=== PATIENT | male | born 1995 | race African-American/Black ===

== ENCOUNTER 2017-05-16 11:17 | Emergency (ER) | payer SELFPAY ==
[~2017-05-16] VITALS: Ht 172.7 cm; Wt 90.0 kg
[~2017-05-16 11:17] MED LIST: ALBU.5I NEB
[2017-05-16 11:19] VITALS: BP 139/79; PULSE 68; RESP 20; TEMP 98.2; O2SAT 99
--- NOTE | 2017-05-16 11:31 | PD ---
Physical Exam Date Seen by Provider: May 16, 2017 Time Seen by Provider: 11:30 Narrative 21-year-old male presents to emergency department with 2 episodes of painless hematuria since yesterday. Patient denies fever, chills, dull pain, flank pain, or penile discharge. Urinalysis is ordered. Vital signs stable. Patient awaiting bed placement. Data Data Last Documented VS Vital Signs Date Time Temp Pulse Resp B/P (MAP) Pulse Ox O2 Delivery O2 Flow Rate FiO2 05/16/17 11:19 98.2 68 20 139/79 (99) 99 Room Air [facility] Medical Record Reviewed: Yes Supervised Visit with COLLETTE: Yes Condition: Stable Mendez Negron May 16, 2017 11:31
[2017-05-16 12:40] LABS: BACTERIA, URINE OCC /hpf; BLOOD, URINE LARGE (NEG); COMMENT (UR) CULTURE INDICATED; CULTURE IF INDICATED CULTURE INDICATED; GLUCOSE,URINE NEG (NEG); KETONE, URINE NEG (NEG); NITRITE,URINE NEG (NEG); PH, URINE 8.5 (5.0-8.5); URINE COLOR YELLOW (YELLW/STRAW)
--- NOTE | 2017-05-16 12:43 | PD ---
HPI Chief Complaint: Complaint Time Seen by Provider: 12:20 Travel History International Travel<30 days: No Contact w/Intl Traveler<30days: No Traveled to known affect area: No History of Present Illness HPI 21-year-old male patient presents to the emergency department for evaluation of painless hematuria that started last night. Patient states that there is large amounts of blood in his urine last night but there is no pain associated. There was a moderate amount of blood in his urine this morning but his last void was completely clear without blood per patient. Patient denies any major medical history. Patient states he does not take any daily medication. Patient denies any recent traumas. Patient denies any shortness breath, chest pain, fevers, chills, malaise, dysuria, abdominal pain, nausea, vomiting, diarrhea or lightheadedness. PFSH Past Medical History Asthma: Yes Cardiovascular Problems: No Developmental Delay: No Diminished Hearing: No Genitourinary: No Musculoskeletal: No Neurologic: No Psychiatric: No Respiratory: Yes Immunizations Current: Yes Tetanus Vaccination: < 5 Years Influenza Vaccination: No Past Surgical History Surgical History: No Previous Surgery Social History Alcohol Use: No Tobacco Use: No Substance Use: No Allergies-Medications (Allergen,Severity, Reaction): Coded Allergies: No Known Allergies (Unverified , 05/16/17) Reported Meds & Prescriptions Reported Meds & Active Scripts Active Bactrim DS (Sulfamethoxazole-Trimethoprim) 800-160 Mg Tab 1 Tab PO BID 7 Days Review of Systems Except as stated in HPI: all other systems reviewed are Neg Physical Exam Narrative GENERAL: Well-developed well-nourished 21-year-old male in no acute distress SKIN: Focused skin assessment warm/dry. HEAD: Atraumatic. Normocephalic. EYES: Pupils equal and round. No scleral icterus. No injection or drainage. ENT: No nasal bleeding or discharge. Mucous membranes pink and moist. NECK: Trachea midline. No JVD. CARDIOVASCULAR: Regular rate and rhythm. No murmur appreciated. RESPIRATORY: No accessory muscle use. Clear to auscultation. Breath sounds equal bilaterally. GASTROINTESTINAL: Abdomen soft, non-tender, nondistended. Hepatic and splenic margins not palpable. MUSCULOSKELETAL: No obvious deformities. No clubbing. No cyanosis. No edema. NEUROLOGICAL: Awake and alert. No obvious cranial nerve deficits. Motor grossly within normal limits. Normal speech. PSYCHIATRIC: Appropriate mood and affect; insight and judgment normal. Data Data Last Documented VS Vital Signs Date Time Temp Pulse Resp B/P (MAP) Pulse Ox O2 Delivery O2 Flow Rate FiO2 05/16/17 11:36 78 16 05/16/17 11:19 98.2 139/79 (99) 99 Room Air Orders Orders Urinalysis - C+S If Indicated (05/16/17 11:34) Urine Culture (05/16/17 11:41) Labs Laboratory Tests Test 05/16/17 11:41 Urine Color YELLOW Urine Turbidity CLEAR Urine pH 8.5 Urine Specific [place] 1.024 Urine Protein 30 mg/dL Urine Glucose (UA) NEG mg/dL Urine Ketones NEG mg/dL Urine Occult Blood LARGE Urine Nitrite NEG Urine Bilirubin NEG Urine Urobilinogen LESS THAN 2.0 MG/DL Urine Leukocyte Esterase NEG Urine RBC /hpf Urine WBC 9 /hpf Urine Bacteria OCC /hpf Microscopic Urinalysis Comment CULTURE INDICATED MDM Medical Decision Making Medical Screen Exam Complete: Yes Emergency Medical Condition: Yes Medical Record Reviewed: Yes Differential Diagnosis Differential diagnoses include but are not limited to urinary tract infection, hematuria, acute kidney injury, nephrolithiasis Narrative Course 21-year-old male patient in no acute distress presents to the emergency department for evaluation of painless hematuria that initially started last night. Patient had 2 episodes of painless hematuria then per patient resolved spontaneously with his next void. Stating his last urine was completely clear. Patient denies any fevers, dysuria, chills, malaise or lightheadedness. Patient denies any chest pain, shortness breath, abdominal pain, nausea, vomiting or diarrhea. Urinalysis ordered and pending. Urinalysis large amounts of white blood cells and bacteria. Culture is indicated and pending. Patient case discussed with my attending Dr. Ross. Patient will be discharged home with antibiotics for urinary tract infection. Diagnosis Primary Impression: Urinary tract infection Referrals: Primary Care Physician Patient Instructions: General Instructions, Urinary Tract Infection in Men (DC) Additional Instructions: Take full course of antibiotics until complete. Drink plenty of water and stay hydrated. May use Tylenol or Motrin for fever or pain. Return to the emergency department with any emergent conditions. Med/Other Pt SpecificInfo: Prescription(s) given Scripts Sulfamethoxazole-Trimethoprim (Bactrim DS) 800-160 Mg Tab 1 TAB PO BID for Infection for 7 Days, #14 TAB 0 Refills Prov: Janina Garza 05/16/17 Disposition: 01 DISCHARGE HOME Condition: Stable Janina Garza May 16, 2017 12:43
[2017-05-16] MEDS ORDERED: BACT800T5 PO (12:50)
--- NOTE | 2017-05-16 12:53 | PD ---
Physical Exam Date Seen by Provider: May 16, 2017 Narrative Patient presents with a less than 24-hour history of hematuria GENERAL: Healthy-appearing man in no acute distress. SKIN: warm/dry. HEAD: Normocephalic. EYES: Pupils equal and round. NECK: Full range of motion without pain.. CARDIOVASCULAR: Regular rate and rhythm. RESPIRATORY: No accessory muscle use. MUSCULOSKELETAL: No obvious deformities. NEUROLOGICAL: Awake and alert. No obvious cranial nerve deficits. Motor grossly within normal limits. Normal speech. PSYCHIATRIC: Appropriate mood and affect; insight and judgment normal. Data Data Last Documented VS Vital Signs Date Time Temp Pulse Resp B/P (MAP) Pulse Ox O2 Delivery O2 Flow Rate FiO2 05/16/17 11:36 78 16 05/16/17 11:19 98.2 139/79 (99) 99 Room Air Orders Orders Urinalysis - C+S If Indicated (05/16/17 11:34) Urine Culture (05/16/17 11:41) Labs Laboratory Tests Test 05/16/17 11:41 Urine Color YELLOW Urine Turbidity CLEAR Urine pH 8.5 Urine Specific [place] 1.024 Urine Protein 30 mg/dL Urine Glucose (UA) NEG mg/dL Urine Ketones NEG mg/dL Urine Occult Blood LARGE Urine Nitrite NEG Urine Bilirubin NEG Urine Urobilinogen LESS THAN 2.0 MG/DL Urine Leukocyte Esterase NEG Urine RBC /hpf Urine WBC 9 /hpf Urine Bacteria OCC /hpf Microscopic Urinalysis Comment CULTURE INDICATED MDM Supervised Visit with COLLETTE: Yes Narrative Course I, Dr. Ross, have reviewed the advance practice practitioner's documentation and am in agreement, met with the patient face to face, made the diagnosis, and the medical decision making was done by me. *My assessment and Findings: Vital Signs Date Time Temp Pulse Resp B/P (MAP) Pulse Ox O2 Delivery O2 Flow Rate FiO2 05/16/17 11:36 78 16 05/16/17 11:19 98.2 68 20 139/79 (99) 99 Room Air UA>>TNTC RBCs, 9 WBCs, occ bact Referrals: Primary Care Physician Patient Instructions: General Instructions, Acute Hematuria (DC) Scripts Sulfamethoxazole-Trimethoprim (Bactrim DS) 800-160 Mg Tab 1 TAB PO BID for Infection for 7 Days, #14 TAB 0 Refills Prov: Janina Garza AFIA 05/16/17 Disposition: 01 DISCHARGE HOME Condition: Stable Katalina Ross MD May 16, 2017 12:53
[2017-05-16 13:05] VITALS: BP_SYST 108; BP_SYST 120; BP_DIAS 68; BP_DIAS 69; TEMP 97.8
== END 2017-05-16 13:05 | disposition home or self-care (01) ==
LOC: NEPD 11:17
DX: N39.0 Urinary tract infection, site not specified (principal)
CPT/HCPCS: 81001; 87086; 99283